=== PATIENT | female | born 1955 ===

== ENCOUNTER → 2022-11-26 09:48 | Outpatient (CLI) | payer MEDICARE, SELFPAY ==
--- NOTE | ~2022-11-26 | MR_ITS ---
EXAMINATION: MR shoulder LT wo con DATE: 11/26/2022 10:28 INDICATION: Left shoulder pain. Left shoulder rotator cuff syndrome. TECHNIQUE: Magnetic resonance imaging (MRI) of the left shoulder was performed without intravenous co ntrast. Sequences included axial PD-weighted FS FSE, coronal oblique PD-weighted FS FSE and T2-weight ed FS FSE, and sagittal oblique T2-weighted FS FSE and T1-weighted FSE. COMPARISON: None. FINDINGS: Coracoacromial arch: The acromion undersurface is curved in morphology with anterior hook (type III). There is severe acro mioclavicular joint osteoarthritis including inferiorly directed osteophytes. There is severe subacro mial/subdeltoid bursitis. Rotator cuff: There is an articular-sided, partial-thickness tear of supraspinatus and infraspinatus tendons measur ing 1.1 cm anterior to posterior by 2.2 cm proximal to distal by 60% tendon thickness. Teres minor te ndon is normal. There is mild subscapularis tendinopathy. There is no asymmetric fatty atrophy of the rotator cuff muscle bellies. Biceps tendon and glenoid labrum: Biceps tendon is in bicipital groove. There is mild intra-articular biceps tendinopathy. There is a t ear of the superior and posterior glenoid labrum from 12:00 to 9:00 (SLAP tear). Fluid: There is a small glenohumeral joint effusion. Bones/cartilage: There is deep partial thickness cartilage loss of humeral head and glenoid. Osteophytes are noted. IMPRESSION: 1. Articular-sided, partial-thickness tear of the rotator cuff. 2. Moderate glenohumeral joint chondrosis. 3. Severe acromioclavicular osteoarthritis. 4. Small glenohumeral joint effusion. 5. Severe subacromial/subdeltoid bursitis. 6. Mild intra-articular biceps tendinopathy. Reviewed, dictated and finalized at location E.
== END ==
DX: M75.102 Unspecified rotator cuff tear or rupture of left shoulder, not specified as traumatic (principal); M94.212 Chondromalacia, left shoulder; M19.012 Primary osteoarthritis, left shoulder; M25.412 Effusion, left shoulder; M75.52 Bursitis of left shoulder
CPT/HCPCS: 73221